=== PATIENT | female | born 1970 | race African-American/Black ===

== ENCOUNTER 2018-02-17 15:27 | Day surgery (SDC) | payer MEDICARE, BC ==
[2018-02-17] MEDS ORDERED: LIDOCAINE 2% (SDV) 5 ML INJ (17:23)
[2018-02-17] MEDS ORDERED: PROPOFOL 40 ML (17:23)
== END 2018-02-17 18:22 | disposition home or self-care (01) ==
LOC: GIL 15:27
DX: K29.60 Other gastritis without bleeding (principal); K29.80 Duodenitis without bleeding; K20.9 Esophagitis, unspecified
CPT/HCPCS: 43239; 84703; 88305